=== PATIENT | female | born 1995 | race Caucasian/White ===

== ENCOUNTER 2019-08-21 16:44 | Emergency (ER) | payer OTHER, MEDICAID ==
[~2019-08-21] VITALS: Ht 157.5 cm; Wt 54.4 kg
[2019-08-21] MEDS ORDERED: OMEPRAZOLE 20 M20 M1 PO (16:58)
[2019-08-21] MEDS ORDERED: BUSPIRONE HCL10 MG PO (16:58)
[2019-08-21] MEDS ORDERED: LEXAPRO 10 MG T10 M2 PO (16:58)
[2019-08-21] MEDS ORDERED: TYLENOL WITH CO1 TA1 PO (17:02)
[2019-08-21] MEDS ORDERED: LIDOCAINE VISC100 ML SWISH&SPIT (17:02)
[2019-08-21] MEDS ORDERED: KEFLEX500 M1 PO (17:02)
[2019-08-21 17:09] VITALS: BP 125/80
== END 2019-08-21 17:11 | disposition home or self-care (01) ==
LOC: M.ERS 16:44
DX: K04.7 Periapical abscess without sinus (principal); F41.9 Anxiety disorder, unspecified; Z88.0 Allergy status to penicillin; Z88.2 Allergy status to sulfonamides